=== PATIENT | female | born 1990 | race Caucasian/White ===

== ENCOUNTER 2023-12-16 01:35 | Emergency (ER) | payer MEDICAID ==
[~2023-12-16] VITALS: Ht 149.9 cm; Wt 99.8 kg
[2023-12-16 01:46] VITALS: BP_SYST 103; PULSE 79; RESP 19; TEMP 97.2; O2SAT 97
[2023-12-16] MEDS: DIPHENHYDRAMINE INJ 50 MG/ML VIAL IM ONE (02:18)
[2023-12-16] MEDS: HALOPERIDOL LACTATE 5 MG/ML VIAL IM ONE (02:23)
[2023-12-16 03:25] VITALS: BP_SYST 103; PULSE 68; RESP 17; TEMP 98; O2SAT 99
== END 2023-12-16 03:20 | disposition home or self-care (01) ==
LOC: SED 01:35
DX: G25.81 Restless legs syndrome (principal)
CPT/HCPCS: 99284; 96372; J1200; J1630